=== PATIENT | female | born 1960 | race Caucasian/White ===

== ENCOUNTER → 2016-11-09 | Outpatient (CLI) | payer MEDICAID ==
[~2016-11-09] MED LIST: AMLO10TA2 PO; AMOX1TAB12 PO; ASPI-621 PO; ATOR40TA78 PO; ATOR80TA75 PO; BENA40TA2 PO; CEFD300C37 PO; DILT240C77 PO; DILT360C26 PO; Docusate Sodium PO; INSU100C SQ-INSULIN; INSU100I18 SQ-INSULIN; INSU100V8 SQ; LEVO75TA5 PO; METF500T4 PO; METO25TA9 PO; METR500T PO; NITR0.4T8 SL; POLY17PO5 PO; SERT50TA5 PO; TICA90TA PO
== END | disposition home or self-care (01) ==
LOC: GALN 11-03 15:32 → EDSTATUS 11-03 16:15 → CFH 16:18
PROVIDERS: ATTEND Internal Medicine Critical Care Medicine
DX: R91.8 Other nonspecific abnormal finding of lung field (principal)
CPT/HCPCS: 71250

== ENCOUNTER 2016-11-17 03:17 | Inpatient (IN) | payer MEDICAID ==
[~2016-11-17] VITALS: Ht 147.3 cm; Wt 52.9 kg
[2016-11-17 04:01] LABS: BLOOD UREA NITROGEN 38 mg/dL (7-18)
[2016-11-17 04:05] LABS: IS PT STATUS REG ER OR PRE ER? YES
[2016-11-17] MEDS ORDERED: ASPIRIN 81 MG TABLET CHEW PO ONE (04:30)
[2016-11-17] MEDS ORDERED: ASPIRIN 81 MG TABLET CHEW ONE (04:56)
[2016-11-17] MEDS ORDERED: ONDANSETRON 2MG/ML, 2ML IVPush PRN ×2 (05:00→06:00)
[2016-11-17] MEDS ORDERED: DEXTROSE 4 GM TAB.CHEW PO PRN (06:00)
[2016-11-17] MEDS ORDERED: NITROGLYCERIN 0.4 MG BOTTLE (25 TABS) SL PRN (06:00)
[2016-11-17] MEDS ORDERED: BISACODYL 10 MG SUPP PR PRN (06:00)
[2016-11-17] MEDS ORDERED: GLUCAGON 1 MG IM PRN (06:00)
[2016-11-17] MEDS ORDERED: POLYETHYLENE GLYCOL 17 GM PACKET PO PRN (06:00)
[2016-11-17] MEDS ORDERED: PROMETHAZINE 25 MG/ML, 1ML IM PRN (06:00)
[2016-11-17] MEDS ORDERED: DEXTROSE 50%, 50ML SYRINGE IVPush PRN (06:00)
[2016-11-17] MEDS ORDERED: DOCUSATE 100 MG CAPSULE PO PRN (06:00)
[2016-11-17] MEDS ORDERED: ACETAMINOPHEN 325 MG TABLET PO PRN (06:00)
[2016-11-17] MEDS ORDERED: HYDROcodone/APAP 5/325 TABLET PO PRN (06:00)
[2016-11-17] MEDS ORDERED: NITROGLYCERIN 0.4 MG/SPRAY SL PRN (06:00)
[2016-11-17 06:03] VITALS: BP 120/77
[2016-11-17] MEDS: LEVOTHYROXINE 75 MCG TABLET PO SCH (06:31)
[2016-11-17] MEDS: CEFTRIAXONE PMX 1GM/50ML 50 ML IV SCH (06:31)
[2016-11-17] MEDS: ENOXAPARIN 40 MG/0.4 ML SQ SCH (06:31)
[2016-11-17 07:36] VITALS: BP 142/90
[2016-11-17] MEDS ORDERED: GADOBUTROL 7.5 MMOL/7.5 ML PFS ONE (08:22)
[2016-11-17] MEDS: INSULIN ASPART 100 UNITS/ML, PEN SQ-INSULIN SCH ×4 (09:21→21:00)
[2016-11-17] MEDS: TICAGRELOR 90 MG TABLET PO SCH ×2 (09:22→21:51)
[2016-11-17] MEDS: LACTOBACILLUS CHEW TABLET PO SCH ×3 (09:22→21:51)
[2016-11-17] MEDS: ASPIRIN 81 MG TABLET EC PO SCH (09:22)
[2016-11-17] MEDS: SODIUM CHLORIDE FLUSH 10ML SYR IVF SCH ×2 (09:23→21:51)
[2016-11-17 12:24] LABS: IS PT STATUS REG ER OR PRE ER? NO
[2016-11-17 14:00] VITALS: BP 124/82
[2016-11-17 16:25] LABS: IS PT STATUS REG ER OR PRE ER? NO
[2016-11-17 19:12] LABS: IS PT STATUS REG ER OR PRE ER? NO
[2016-11-17 19:48] VITALS: BP 115/77
[2016-11-17] MEDS ORDERED: ATORVASTATIN 80 MG TABLET PO SCH (21:00)
[2016-11-18 02:07] VITALS: BP 126/83
[2016-11-18] MEDS: ENOXAPARIN 40 MG/0.4 ML SQ SCH (06:32)
[2016-11-18] MEDS: LEVOTHYROXINE 75 MCG TABLET PO SCH (06:32)
[2016-11-18] MEDS: CEFTRIAXONE PMX 1GM/50ML 50 ML IV SCH (06:33)
[2016-11-18 06:51] LABS: ASPARTATE AMINO TRANSFERASE 9 U/L (15-37); BLOOD UREA NITROGEN 33 mg/dL (7-18)
[2016-11-18] MEDS: INSULIN ASPART 100 UNITS/ML, PEN SQ-INSULIN SCH ×2 (07:00→12:07)
[2016-11-18 07:55] VITALS: BP 135/89
[2016-11-18] MEDS: SODIUM CHLORIDE FLUSH 10ML SYR IVF SCH (08:34)
[2016-11-18] MEDS: ASPIRIN 81 MG TABLET EC PO SCH (08:35)
[2016-11-18] MEDS: TICAGRELOR 90 MG TABLET PO SCH (08:35)
[2016-11-18] MEDS: LACTOBACILLUS CHEW TABLET PO SCH (08:35)
[2016-11-18] MEDS ORDERED: CEFD300C37 PO (12:05)
[2016-11-18] MEDS ORDERED: ACID1TAB7 PO (12:05)
[2016-11-18 14:54] VITALS: BP 125/85
[2016-11-18] MEDS ORDERED: INSULIN DETEMIR 100 UNITS/ML, PEN SQ-INSULIN SCH (21:00)
== END 2016-11-18 15:55 | disposition home health service (06) | DRG 281 ==
LOC: ED 03:37 → EDIP 04:42 → 5SO 05:44 → DCLOUNGE 11-18 14:58
PROVIDERS: ADMIT Internal Medicine; ATTEND Internal Medicine
DX: I21.4 Non-ST elevation (NSTEMI) myocardial infarction (principal); G45.9 Transient cerebral ischemic attack, unspecified; I13.0 Hypertensive heart and chronic kidney disease with heart failure and stage 1 through stage 4 chronic kidney disease, or unspecified chronic kidney disease; I50.22 Chronic systolic (congestive) heart failure; N39.0 Urinary tract infection, site not specified; I25.10 Atherosclerotic heart disease of native coronary artery without angina pectoris; I25.5 Ischemic cardiomyopathy; E11.9 Type 2 diabetes mellitus without complications; E11.22 Type 2 diabetes mellitus with diabetic chronic kidney disease; N18.3 Chronic kidney disease, stage 3 (moderate); D64.9 Anemia, unspecified; I34.0 Nonrheumatic mitral (valve) insufficiency; E11.65 Type 2 diabetes mellitus with hyperglycemia; E78.5 Hyperlipidemia, unspecified; E03.9 Hypothyroidism, unspecified; D63.8 Anemia in other chronic diseases classified elsewhere; Z95.5 Presence of coronary angioplasty implant and graft; I25.2 Old myocardial infarction; Z79.4 Long term (current) use of insulin; Z79.02 Long term (current) use of antithrombotics/antiplatelets; Z79.82 Long term (current) use of aspirin; Z79.899 Other long term (current) drug therapy
CPT/HCPCS: 36415; 70450; 70553; 71010; 80048; 80053; 81001; 82040; 82962; 83036; 83880; 84443; 84484; 85025; 85610; 87070; 87086; 87205; 93005; 93306; 93880; 99285; A9585; J0696; J1650; J1815; 92523-GN

== ENCOUNTER 2016-12-12 10:07 | Emergency (ER) | payer MEDICAID ==
[~2016-12-12] VITALS: Ht 162.6 cm; Wt 54.0 kg
[~2016-12-12 10:07] MED LIST changes: +ACID1TAB7 PO
[2016-12-12 10:12] VITALS: BP 165/96
[2016-12-12 11:19] LABS: BLOOD UREA NITROGEN 30 mg/dL (7-18)
[2016-12-12] MEDS ORDERED: OMNIPAQUE 350 MG/ML, 100ML BOTTLE ONE (12:35)
== END 2016-12-12 13:26 | disposition home or self-care (01) ==
LOC: ED 11:22
DX: R31.0 Gross hematuria (principal); E11.9 Type 2 diabetes mellitus without complications; I10 Essential (primary) hypertension; E03.9 Hypothyroidism, unspecified; E78.00 Pure hypercholesterolemia, unspecified; I25.2 Old myocardial infarction; Z86.73 Personal history of transient ischemic attack (TIA), and cerebral infarction without residual deficits
CPT/HCPCS: 36415; 74177; 80048; 81001; 82040; 85025; 85610; 85730; 99285; Q9967

== ENCOUNTER 2016-12-17 05:54 | Day surgery (SDC) | payer MEDICAID ==
[2016-12-17] MEDS ORDERED: NALOXONE 1 MG/ML, 2ML ONE (08:11)
[2016-12-17] MEDS ORDERED: FLUMAZENIL 0.1 MG/1 ML, 5ML ONE (08:11)
[2016-12-17] MEDS ORDERED: FENTANYL PF 100 MCG/2ML ONE (08:11)
[2016-12-17] MEDS ORDERED: MIDAZOLAM 1 MG/ML, 5ML ONE (08:11)
== END 2016-12-17 11:05 ==
LOC: OUT 05:54
PROVIDERS: ATTEND Internal Medicine Critical Care Medicine
DX: J18.8 Other pneumonia, unspecified organism (principal); F17.200 Nicotine dependence, unspecified, uncomplicated; E11.9 Type 2 diabetes mellitus without complications; I10 Essential (primary) hypertension
CPT/HCPCS: 32405; 71010; 77012; 82962; 88305; 88312; 99156; 99157; J2250; J3010; J2310

== ENCOUNTER 2016-12-17 11:24 | Emergency (ER) | payer MEDICAID ==
[~2016-12-17] VITALS: Ht 147.3 cm; Wt 52.0 kg
[2016-12-17 12:11] LABS: BLOOD UREA NITROGEN 28 mg/dL (7-18)
[2016-12-17 12:16] LABS: IS PT STATUS REG ER OR PRE ER? YES
[2016-12-17 12:42] VITALS: BP 126/78
== END 2016-12-17 13:58 | disposition home or self-care (01) ==
LOC: ED 12:30
DX: R09.02 Hypoxemia (principal)
CPT/HCPCS: 36415; 80048; 82040; 83880; 84484; 85025; 93005; 99285

== ENCOUNTER 2017-01-13 07:29 | Day surgery (SDC) | payer MEDICAID ==
[2017-01-12 09:24] LABS: HEMATOCRIT 32.6 % (34.6-47.8); HEMOGLOBIN 10.6 g/dL (11.7-16.4)
[~2017-01-13] VITALS: Ht 147.3 cm; Wt 55.0 kg
[~2017-01-13 07:29] MED LIST changes: +ATOR-2 PO; -ATOR80TA75 PO; +LIDOCAINE 4% TOPICAL SOLUTION 50 ML ONE; +LIDOCAINE GEL 2%, 5ML ONE; +METO25TA35 PO; +NITR0.4T28 SL; -NITR0.4T8 SL
[2017-01-13] MEDS ORDERED: LACTATED RINGERS 1,000 ML IV SCH (07:41)
[2017-01-13] MEDS ORDERED: SODIUM CHLORIDE 0.9% 1,000 ML IV SCH (07:42)
[2017-01-13 08:03] VITALS: BP 143/86
[2017-01-13] MEDS ORDERED: FENTANYL PF 100 MCG/2ML ONE (08:58)
[2017-01-13] MEDS ORDERED: MIDAZOLAM 1 MG/ML, 5ML ONE (08:58)
== END 2017-01-13 16:45 | disposition home or self-care (01) ==
LOC: OUT 07:29
PROVIDERS: ATTEND Internal Medicine Critical Care Medicine
DX: J40 Bronchitis, not specified as acute or chronic (principal); E11.9 Type 2 diabetes mellitus without complications; I10 Essential (primary) hypertension; E03.9 Hypothyroidism, unspecified; E78.5 Hyperlipidemia, unspecified; F41.9 Anxiety disorder, unspecified; Z79.4 Long term (current) use of insulin; Z79.82 Long term (current) use of aspirin
CPT/HCPCS: 31624; 31625; 36415; 71010; 85025; 85610; 85730; 87015; 87070; 87102; 87107; 87116; 87205; 87206; 88112; 88305; 88312; 99152; 99153; J2250; J3010; J7030

== ENCOUNTER → 2017-11-07 | Outpatient (CLI) | payer OTHER ==
[~2017-11-07] MED LIST changes: +CARV12.543 PO; +CLOP75TA PO; +DOCU-131 PO; +FLUC200T4 PO; +FURO20TA3 PO; +HYDR-3240 PO; -LIDOCAINE 4% TOPICAL SOLUTION 50 ML ONE; -LIDOCAINE GEL 2%, 5ML ONE; +LOSA100T6 PO; -METF500T4 PO; +METF500T5 PO; +METO-282 PO; -METO25TA9 PO; +POTA10TA5 PO
== END | disposition home or self-care (01) ==
LOC: CFH 13:21
PROVIDERS: ATTEND Internal Medicine Cardiovascular Disease
DX: I34.0 Nonrheumatic mitral (valve) insufficiency (principal); I12.9 Hypertensive chronic kidney disease with stage 1 through stage 4 chronic kidney disease, or unspecified chronic kidney disease; E11.22 Type 2 diabetes mellitus with diabetic chronic kidney disease; N18.3 Chronic kidney disease, stage 3 (moderate); E78.5 Hyperlipidemia, unspecified; I25.5 Ischemic cardiomyopathy; Z86.73 Personal history of transient ischemic attack (TIA), and cerebral infarction without residual deficits; Z95.1 Presence of aortocoronary bypass graft
CPT/HCPCS: 0399T; 93306

== ENCOUNTER → 2018-05-17 | Outpatient (CLI) | payer OTHER ==
[~2018-05-17] MED LIST changes: -AMLO10TA2 PO; +AMLO10TA6 PO; -ASPI-621 PO; +ASPI81TA45 PO; -BENA40TA2 PO; +BENA40TA3 PO; -LOSA100T6 PO; +LOSA100T7 PO; +METF500T17 PO; -METF500T5 PO
[2018-05-17 09:48] LABS: ALANINE AMINOTRANSFERASE 60 U/L (12-78); ANION GAP 11 mmol/L (5-15); CHLORIDE 117 mmol/L (98-107); CHOLESTEROL, TOTAL 210 mg/dL (140-239); CREATININE 2.31 mg/dL (0.55-1.02)
[2018-05-17 09:50] LABS: ALKALINE PHOSPHATASE 201 U/L (45-117); BILIRUBIN,TOTAL 0.6 mg/dL (0.2-1.0); CHOL/HDL RATIO 3.6; HDL CHOL % 28 % (28-40); HDL CHOLESTEROL (DIRECT) 59 mg/dL (40-60); LDL CHOLESTEROL,CALCULATED 115 mg/dL (54-169); LDL/HDL RATIO 1.9 (0.5-3.0); TOTAL PROTEIN 8.2 g/dL (6.4-8.2); TRIGLYCERIDES 182 mg/dL (50-200); VLDL CHOLESTEROL 36 mg/dL (0-25)
== END | disposition home or self-care (01) ==
LOC: LAB 09:21
PROVIDERS: ATTEND Internal Medicine Cardiovascular Disease
DX: I10 Essential (primary) hypertension (principal); E78.2 Mixed hyperlipidemia
CPT/HCPCS: 36415; 80053; 80061

== ENCOUNTER 2018-05-30 04:54 | Inpatient (IN) | payer OTHER ==
[~2018-05-30] VITALS: Ht 149.9 cm; Wt 53.4 kg
[~2018-05-30 04:54] MED LIST changes: -AMLO10TA6 PO; +AMLO10TA8 PO; +LOSA100T14 PO; -LOSA100T7 PO; +SERT50TA28 PO; -SERT50TA5 PO
--- NOTE | 2018-05-30 05:13 | NUR ---
EKG COMPLETED IN TRIAGE AND PRESENTED TO ERMD. PT. AMBULATORY TO ROOM WITH STEADY GAIT ACCOMPANIED BY FAMILY.
[2018-05-30] MEDS ORDERED: METOCLOPRAMIDE 5 MG/ML, 2ML IVPush ONE (05:30)
[2018-05-30] MEDS ORDERED: KETOROLAC 30 MG/1 ML IVPush ONE (05:30)
[2018-05-30] MEDS ORDERED: SODIUM CHLORIDE FLUSH 10ML SYR IVF ONE (05:30)
[2018-05-30] MEDS ORDERED: DIPHENHYDRAMINE 50 MG/ML, 1ML IVPush ONE (05:30)
--- NOTE | 2018-05-30 05:37 | NUR ---
PT. PLACED ON ALL MONITORS AT THIS TIME. RA SAT 85% DESPITE DEEP BREATHING. PT DENIES CP OR SOB. 2L O2 VIA NC PLACED; INCREASE TO 94% AFTER ABOUT 35 SECONDS. ONLY COMPLAINT IS FOX AND RIGHT NECK PAIN. PT. C/O NAUSEA BUT DENIES VOMITNG. DENIES ABD PAIN OR DYSURIA. DR. YOUSSEF WAS IN TO EVAL PT. AND DISCUSS POC. IV STARTED AND BLOOD DRAWN.
[2018-05-30] MEDS ORDERED: KETOROLAC 30 MG/1 ML ONE (05:48)
[2018-05-30] MEDS ORDERED: METOCLOPRAMIDE 5 MG/ML, 2ML ONE (05:48)
[2018-05-30] MEDS ORDERED: DIPHENHYDRAMINE 50 MG/ML, 1ML ONE (05:48)
[2018-05-30 05:49] LABS: BASOPHILS # (AUTO) 0.04 x10^3/uL (0-0.1); BASOPHILS % (AUTO) 0 % (0-1); EOSINOPHILS # (AUTO) 0.32 x10^3/uL (0-0.4); EOSINOPHILS % (AUTO) 3 % (1-7); LYMPHOCYTES # (AUTO) 1.32 x10^3/uL (1-3.4); LYMPHOCYTES % (AUTO) 14 % (22-44); MD NO; MEAN CORPUSCULAR HEMOGLOBIN 31.7 pg (27.0-34.8); MEAN CORPUSCULAR HGB CONC 33.9 g/dL (32.4-35.8); MEAN CORPUSCULAR VOLUME 93.4 fL (80-100); MEAN PLATELET VOLUME 9.5 fL (7.4-10.4); MONOCYTES # (AUTO) 1.08 x10^3/uL (0.2-0.8); MONOCYTES % (AUTO) 11 % (2-9); NEUTROPHILS % (AUTO) 72 % (42-75); PLATELET COUNT 169 x10^3/uL (130-400); RED BLOOD COUNT 3.28 x10^6/uL (3.82-5.3); RED CELL DISTRIBUTION WIDTH 14.8 % (9.6-15.2)
--- NOTE | 2018-05-30 05:50 | NUR ---
UPDATED DR. YOUSSEF ON PT. NEED FOR O2; NEW ORDERS.
--- NOTE | 2018-05-30 05:59 | NUR ---
HOLDING TORODOL UNTIL HEAD CT RESULTED. PT. MEDICATED PER JUL. ALL MONITORS IN PLACE. FAMILY AT FOR SUPPORT. CALL LIGHT IN REACH.
[2018-05-30 06:03] LABS: ALANINE AMINOTRANSFERASE 47 U/L (12-78); ALBUMIN 3.4 g/dL (3.4-5.0); ANION GAP 7 mmol/L (5-15); CALCIUM 9.1 mg/dL (8.5-10.1); CHLORIDE 116 mmol/L (98-107); CREATININE 2.47 mg/dL (0.55-1.02)
[2018-05-30 06:05] LABS: ALKALINE PHOSPHATASE 169 U/L (45-117); BILIRUBIN,TOTAL 0.7 mg/dL (0.2-1.0); TOTAL PROTEIN 7.7 g/dL (6.4-8.2)
--- NOTE | 2018-05-30 06:05 | NUR ---
PT. TO CT VIA [facility] AT THIS TIME.
--- NOTE | 2018-05-30 06:46 | NUR ---
PT. MEDICATED PER MAR; CT RESULTS BACK. PT. DENIES OTHER NEEDS AT THIS TIME. FAMILY REMAINS AT BS FOR SUPPORT. CALL LIGHT IN REACH.
--- NOTE | 2018-05-30 07:11 | NUR ---
RECEIVED REPORT. VSS. FAMILY AT BEDSIDE. WAITING FOR LAB RESULTS. PT STATES HER FOX IS BETTER.
[2018-05-30] MEDS ORDERED: BENA20TA4 PO (07:15)
[2018-05-30] MEDS ORDERED: INSU100V8 SQ (07:16)
[2018-05-30] MEDS ORDERED: INSULIN LISPRO (07:17)
[2018-05-30 07:33] LABS: TROPONIN I < 0.015 ng/mL (0.000-0.045)
--- NOTE | 2018-05-30 08:14 | NUR ---
PT IS RESTING ON GURNEY. ALL MONITORS ON WITH AUDIBLE ALARMS. NO ECTOPY NOTED. FAMILY IS AT BEDSIDE. VSS. DR. YOUSSEF SPOKE WITH PT AND FAMILY ABOUT ADMISSION TO HOSPITAL. CALL LIGHT IS WITHIN REACH.
[2018-05-30] MEDS ORDERED: CALCIUM CHLORIDE 10%, 10ML SYR ONE (08:24)
[2018-05-30] MEDS ORDERED: SODIUM BICARBONATE 1 MEQ/ML, 50ML VIAL ONE (08:24)
[2018-05-30] MEDS ORDERED: DEXTROSE 50%, 50ML SYRINGE ONE (08:24)
[2018-05-30] MEDS ORDERED: FUROSEMIDE 40 MG/4 ML ONE (08:25)
[2018-05-30] MEDS ORDERED: INSULIN REGULAR 100 UNITS/ML, 3ML VIAL ONE (08:25)
[2018-05-30] MEDS ORDERED: SODIUM BICARB 8.4%, 50ML SYRINGE IVPush ONE (08:30)
[2018-05-30] MEDS ORDERED: FUROSEMIDE 40 MG/4 ML IVPush ONE (08:30)
[2018-05-30] MEDS ORDERED: CALCIUM CHLORIDE 10%, 10ML SYR IVPush ONE (08:30)
[2018-05-30] MEDS ORDERED: SODIUM CHLORIDE FLUSH 10ML SYR IVF PRN (08:30)
[2018-05-30] MEDS ORDERED: DEXTROSE 50%, 50ML SYRINGE IVPush ONE (08:30)
[2018-05-30] MEDS ORDERED: INSULIN REGULAR 100 UNITS/ML, 3ML VIAL IVPush ONE (08:30)
[2018-05-30] MEDS ORDERED: DOXYCYCLINE 100MG TABLET ONE (08:31)
[2018-05-30] MEDS ORDERED: CIPROFLOXACIN 500 MG TABLET ONE (08:31)
[2018-05-30] MEDS ORDERED: SODIUM CHLORIDE 0.9% 1,000 ML IV SCH (08:45)
[2018-05-30] MEDS ORDERED: ONDANSETRON 2MG/ML, 2ML IVPush PRN (09:00)
[2018-05-30] MEDS ORDERED: hydrALAzine 20 MG/ML, 1ML IVPush PRN (09:00)
[2018-05-30] MEDS ORDERED: BISACODYL 10 MG SUPP PR PRN (09:00)
[2018-05-30] MEDS ORDERED: ASA/APAP/ CAFFEINE TABLET PO PRN (09:00)
[2018-05-30] MEDS ORDERED: DOCUSATE 100 MG CAPSULE PO PRN (09:00)
[2018-05-30] MEDS ORDERED: INSULIN LISPRO 100 UNITS/ML, PEN SQ-INSULIN SCH (09:00)
[2018-05-30] MEDS ORDERED: ONDANSETRON ODT 4 MG PO PRN (09:00)
[2018-05-30 09:02] LABS: % IRON SATURATION 17 % (20-55); IRON LEVEL 31 mcg/dL (50-170); TOTAL IRON BINDING CAPACITY 180 mcg/dL (250-450)
--- NOTE | 2018-05-30 10:33 | NUR ---
WAITING FOR ROOM ASSIGNMENT. FAMILY AT [facility]. CALL LIGHT IS WITHIN REACH.
[2018-05-30] MEDS: INSULIN LISPRO 100 UNITS/ML, PEN SQ-INSULIN SCH ×3 (11:00→20:05)
[2018-05-30] MEDS ORDERED: HEPARIN 5,000 UNITS/ML, 1ML ONE (12:40)
[2018-05-30] MEDS ORDERED: SENNA/DOCUSATE TABLET ONE (12:40)
[2018-05-30] MEDS ORDERED: ASPIRIN 81 MG TABLET EC ONE (12:40)
[2018-05-30] MEDS: SENNA/DOCUSATE TABLET PO SCH (12:45)
[2018-05-30] MEDS: HEPARIN 5,000 UNITS/ML, 1ML SQ SCH ×2 (12:45→20:05)
[2018-05-30] MEDS: ASPIRIN 81 MG TABLET EC PO SCH (12:45)
[2018-05-30] MEDS: IRON SUCROSE COMPLEX 100MG/5ML IV SCH (13:24)
[2018-05-30 13:29] LABS: HEMOGLOBIN A1C 6.5 % (4.2-6.3)
[2018-05-30] MEDS ORDERED: hydrALAzine 20 MG/ML, 1ML ONE (13:32)
[2018-05-30 13:45] VITALS: BP 163/81
[2018-05-30] MEDS: LEVOTHYROXINE 75 MCG TABLET PO SCH (14:58)
[2018-05-30 17:19] LABS: CULTURE INDICATED? YES; MICROSCOPIC AUTO
[2018-05-30 17:45] VITALS: BP 161/89
[2018-05-30] MEDS: CARVEDILOL 12.5 MG TABLET PO SCH (17:46)
[2018-05-30 19:36] VITALS: BP 136/80
[2018-05-30] MEDS: ATORVASTATIN 40 MG TABLET PO SCH (20:05)
[2018-05-30] MEDS: INSULIN GLARGINE 100 UNITS/ML, PEN SQ-INSULIN SCH (21:58)
[2018-05-31 03:10] VITALS: BP 147/75
[2018-05-31] MEDS: HEPARIN 5,000 UNITS/ML, 1ML SQ SCH ×3 (05:32→20:48)
[2018-05-31] MEDS: CARVEDILOL 12.5 MG TABLET PO SCH ×2 (05:33→17:11)
[2018-05-31] MEDS: LEVOTHYROXINE 75 MCG TABLET PO SCH (05:33)
[2018-05-31 06:06] LABS: BASOPHILS # (AUTO) 0.02 x10^3/uL (0-0.1); BASOPHILS % (AUTO) 0 % (0-1); EOSINOPHILS # (AUTO) 0.21 x10^3/uL (0-0.4); EOSINOPHILS % (AUTO) 2 % (1-7); LYMPHOCYTES # (AUTO) 1.04 x10^3/uL (1-3.4); LYMPHOCYTES % (AUTO) 9 % (22-44); MD NO; MEAN CORPUSCULAR HEMOGLOBIN 31.5 pg (27.0-34.8); MEAN CORPUSCULAR HGB CONC 33.7 g/dL (32.4-35.8); MEAN CORPUSCULAR VOLUME 93.3 fL (80-100); MEAN PLATELET VOLUME 10.2 fL (7.4-10.4); MONOCYTES # (AUTO) 0.93 x10^3/uL (0.2-0.8); MONOCYTES % (AUTO) 8 % (2-9); NEUTROPHILS % (AUTO) 80 % (42-75); PLATELET COUNT 185 x10^3/uL (130-400); RED BLOOD COUNT 2.98 x10^6/uL (3.82-5.3); RED CELL DISTRIBUTION WIDTH 14.9 % (9.6-15.2)
[2018-05-31 06:16] LABS: ANION GAP 6 mmol/L (5-15); CALCIUM 8.8 mg/dL (8.5-10.1); CHLORIDE 116 mmol/L (98-107); CREATININE 2.67 mg/dL (0.55-1.02)
[2018-05-31] MEDS: INSULIN LISPRO 100 UNITS/ML, PEN SQ-INSULIN SCH ×4 (07:00→20:48)
[2018-05-31 07:48] VITALS: BP 124/74
[2018-05-31] MEDS: IRON SUCROSE COMPLEX 100MG/5ML IV SCH (09:46)
[2018-05-31] MEDS: ASPIRIN 81 MG TABLET EC PO SCH (09:46)
[2018-05-31] MEDS: SENNA/DOCUSATE TABLET PO SCH (09:48)
[2018-05-31] MEDS ORDERED: INSULIN REGULAR 100 UNITS/ML, 3ML VIAL IVPush ONE (12:30)
[2018-05-31] MEDS ORDERED: DEXTROSE 50%, 50ML SYRINGE IVPush ONE (13:00)
[2018-05-31 15:11] VITALS: BP 150/82
[2018-05-31] MEDS ORDERED: AZITHROMYCIN 500 MG in SODIUM CHLORIDE 0.9% 250 ML IV SCH (17:00)
[2018-05-31] MEDS: CEFTRIAXONE PMX 1GM/50ML 50 ML IV SCH (17:02)
[2018-05-31] MEDS: ACETAMINOPHEN 325 MG TABLET PO PRN (18:59)
[2018-05-31] MEDS: SODIUM BICARBONATE 650 MG TABLET PO SCH (20:47)
[2018-05-31] MEDS: ATORVASTATIN 40 MG TABLET PO SCH (20:47)
[2018-05-31] MEDS: INSULIN GLARGINE 100 UNITS/ML, PEN SQ-INSULIN SCH (20:48)
[2018-05-31 20:59] VITALS: BP 127/72
[2018-06-01 00:48] VITALS: BP 120/70
[2018-06-01 05:16] LABS: BASOPHILS # (AUTO) 0.04 x10^3/uL (0-0.1); BASOPHILS % (AUTO) 1 % (0-1); EOSINOPHILS # (AUTO) 0.36 x10^3/uL (0-0.4); EOSINOPHILS % (AUTO) 4 % (1-7); LYMPHOCYTES # (AUTO) 1.66 x10^3/uL (1-3.4); LYMPHOCYTES % (AUTO) 18 % (22-44); MD NO; MEAN CORPUSCULAR HEMOGLOBIN 31.6 pg (27.0-34.8); MEAN CORPUSCULAR HGB CONC 33.6 g/dL (32.4-35.8); MEAN CORPUSCULAR VOLUME 94.3 fL (80-100); MEAN PLATELET VOLUME 9.7 fL (7.4-10.4); MONOCYTES # (AUTO) 0.92 x10^3/uL (0.2-0.8); MONOCYTES % (AUTO) 10 % (2-9); NEUTROPHILS # (AUTO) 6.52 x10^3/uL (1.8-6.8); NEUTROPHILS % (AUTO) 69 % (42-75); PLATELET COUNT 198 x10^3/uL (130-400); RED CELL DISTRIBUTION WIDTH 14.7 % (9.6-15.2)
[2018-06-01 05:24] LABS: CHLORIDE 117 mmol/L (98-107)
[2018-06-01 05:28] LABS: ANION GAP 6 mmol/L (5-15); CALCIUM 8.4 mg/dL (8.5-10.1)
[2018-06-01] MEDS: CARVEDILOL 12.5 MG TABLET PO SCH ×2 (05:33→17:27)
[2018-06-01] MEDS: HEPARIN 5,000 UNITS/ML, 1ML SQ SCH ×3 (05:33→20:26)
[2018-06-01] MEDS: LEVOTHYROXINE 75 MCG TABLET PO SCH (05:33)
[2018-06-01 06:40] VITALS: BP 154/82
[2018-06-01] MEDS: INSULIN LISPRO 100 UNITS/ML, PEN SQ-INSULIN SCH ×4 (07:47→20:30)
[2018-06-01] MEDS ORDERED: AMLODIPINE 2.5 MG TABLET PO SCH (09:00)
[2018-06-01] MEDS: SENNA/DOCUSATE TABLET PO SCH (09:07)
[2018-06-01] MEDS: SODIUM BICARBONATE 650 MG TABLET PO SCH ×2 (09:13→20:26)
[2018-06-01] MEDS: ASPIRIN 81 MG TABLET EC PO SCH (09:13)
[2018-06-01] MEDS: IRON SUCROSE COMPLEX 100MG/5ML IV SCH (09:13)
[2018-06-01 13:05] VITALS: BP 150/81
[2018-06-01] MEDS: CEFTRIAXONE PMX 1GM/50ML 50 ML IV SCH (17:26)
[2018-06-01] MEDS: ATORVASTATIN 40 MG TABLET PO SCH (20:26)
[2018-06-01] MEDS: INSULIN GLARGINE 100 UNITS/ML, PEN SQ-INSULIN SCH (20:30)
[2018-06-01 21:20] VITALS: BP 135/77
[2018-06-02] VITALS (7 sets, daily range): BP systolic 125–170; BP diastolic 67–94
[2018-06-02] MEDS ORDERED: DEXTROSE 50%, 50ML SYRINGE IVPush ONE (01:30)
[2018-06-02] MEDS: CARVEDILOL 12.5 MG TABLET PO SCH ×2 (05:52→18:00)
[2018-06-02] MEDS: HEPARIN 5,000 UNITS/ML, 1ML SQ SCH ×3 (05:52→21:08)
[2018-06-02] MEDS: LEVOTHYROXINE 75 MCG TABLET PO SCH (05:53)
[2018-06-02] MEDS: INSULIN LISPRO 100 UNITS/ML, PEN SQ-INSULIN SCH ×4 (07:45→21:09)
[2018-06-02 07:58] LABS: ANION GAP 6 mmol/L (5-15); CALCIUM 8.5 mg/dL (8.5-10.1); CHLORIDE 116 mmol/L (98-107); CREATININE 2.75 mg/dL (0.55-1.02)
[2018-06-02] MEDS: SODIUM BICARBONATE 650 MG TABLET PO SCH ×2 (09:23→21:08)
[2018-06-02] MEDS: SENNA/DOCUSATE TABLET PO SCH (09:23)
[2018-06-02] MEDS: ASPIRIN 81 MG TABLET EC PO SCH (09:23)
[2018-06-02] MEDS: AMLODIPINE 5 MG TABLET PO SCH (09:25)
[2018-06-02] MEDS: IRON SUCROSE COMPLEX 100MG/5ML IV SCH (09:25)
[2018-06-02] MEDS ORDERED: FUROSEMIDE 40 MG/4 ML IV ONE (11:00)
[2018-06-02] MEDS: CEFTRIAXONE PMX 1GM/50ML 50 ML IV SCH (17:59)
[2018-06-02 18:12] LABS: ANA SCREEN POSITIVE (Negative)
[2018-06-02 18:13] LABS: ANTI-NUCLEAR ANTIBODY PATTERN HOMOGENOUS
[2018-06-02] MEDS ORDERED: INSULIN GLARGINE 100 UNITS/ML, PEN SQ-INSULIN SCH (21:00)
[2018-06-02] MEDS: ATORVASTATIN 40 MG TABLET PO SCH (21:07)
[2018-06-03 00:53] VITALS: BP 129/82
[2018-06-03] MEDS: ACETAMINOPHEN 325 MG TABLET PO PRN (02:15)
[2018-06-03 05:11] LABS: ANION GAP 8 mmol/L (5-15); CALCIUM 8.9 mg/dL (8.5-10.1); CHLORIDE 113 mmol/L (98-107)
[2018-06-03 05:12] LABS: CREATININE 2.67 mg/dL (0.55-1.02)
[2018-06-03 05:45] VITALS: BP 146/83
[2018-06-03] MEDS: LEVOTHYROXINE 75 MCG TABLET PO SCH (05:46)
[2018-06-03] MEDS: CARVEDILOL 12.5 MG TABLET PO SCH (05:46)
[2018-06-03] MEDS: HEPARIN 5,000 UNITS/ML, 1ML SQ SCH ×2 (05:46→13:00)
[2018-06-03] MEDS: INSULIN LISPRO 100 UNITS/ML, PEN SQ-INSULIN SCH ×2 (07:00→11:00)
[2018-06-03 07:45] VITALS: BP 130/79
[2018-06-03] MEDS ORDERED: INSU100V8 SQ (08:17)
[2018-06-03] MEDS ORDERED: AMLO-150 PO (08:17)
[2018-06-03] MEDS ORDERED: FERR324T5 PO (08:17)
[2018-06-03] MEDS ORDERED: CEPH-368 PO (08:19)
[2018-06-03] MEDS: IRON SUCROSE COMPLEX 100MG/5ML IV SCH (08:26)
[2018-06-03] MEDS: SODIUM BICARBONATE 650 MG TABLET PO SCH (08:26)
[2018-06-03] MEDS: ASPIRIN 81 MG TABLET EC PO SCH (08:27)
[2018-06-03] MEDS: AMLODIPINE 5 MG TABLET PO SCH (08:27)
[2018-06-03] MEDS: SENNA/DOCUSATE TABLET PO SCH (08:27)
[2018-06-03 12:55] VITALS: BP 136/81
[2018-06-03] MEDS: CEFTRIAXONE PMX 1GM/50ML 50 ML IV SCH (15:33)
[2018-06-03] MEDS ORDERED: INSULIN GLARGINE 100 UNITS/ML, PEN SQ-INSULIN SCH (21:00)
== END 2018-06-03 17:48 | disposition home or self-care (01) | DRG 682 ==
LOC: ED 06:19 → EDIP 08:20 → 5SO 13:47 → 4WST 06-02 11:31
PROVIDERS: ADMIT Hospitalist; ATTEND Hospitalist
DX: N17.0 Acute kidney failure with tubular necrosis (principal); J96.01 Acute respiratory failure with hypoxia; E87.2 Acidosis; I13.0 Hypertensive heart and chronic kidney disease with heart failure and stage 1 through stage 4 chronic kidney disease, or unspecified chronic kidney disease; I50.42 Chronic combined systolic (congestive) and diastolic (congestive) heart failure; N39.0 Urinary tract infection, site not specified; D50.9 Iron deficiency anemia, unspecified; E03.9 Hypothyroidism, unspecified; E11.22 Type 2 diabetes mellitus with diabetic chronic kidney disease; E78.5 Hyperlipidemia, unspecified; E87.5 Hyperkalemia; G44.219 Episodic tension-type headache, not intractable; I25.10 Atherosclerotic heart disease of native coronary artery without angina pectoris; I25.5 Ischemic cardiomyopathy; N18.9 Chronic kidney disease, unspecified; Q63.2 Ectopic kidney; Z79.4 Long term (current) use of insulin; I25.2 Old myocardial infarction; Z82.49 Family history of ischemic heart disease and other diseases of the circulatory system; Z83.3 Family history of diabetes mellitus; Z86.73 Personal history of transient ischemic attack (TIA), and cerebral infarction without residual deficits; Z95.1 Presence of aortocoronary bypass graft
CPT/HCPCS: 36415; 70450; 71046; 76770; 80048; 80053; 81001; 82570; 82947; 82962; 83036; 83540; 83550; 83735; 83880; 84100; 84132; 84155; 84156; 84165; 84166; 84300; 84439; 84443; 84484; 85025; 86038; 86039; 86160; 86162; 87077; 87086; 87186; 93005; 96374; 96375; 99285; G0378; J0456; J0696; J1644; J1756; J1885; J1940; J2405; J1200; J1815; J2765; J7030; J7050

== ENCOUNTER → 2018-06-15 | Outpatient (CLI) | payer OTHER ==
[~2018-06-15] MED LIST changes: +AMLO-150 PO; +BENA20TA54 PO; +CEPH-368 PO; +FERR324T5 PO; +INSULIN LISPRO
[2018-06-15 10:48] LABS: ALANINE AMINOTRANSFERASE 41 U/L (12-78); ALBUMIN 3.5 g/dL (3.4-5.0); BASOPHILS # (AUTO) 0.04 x10^3/uL (0-0.1); BASOPHILS % (AUTO) 1 % (0-1); CALCIUM 9.2 mg/dL (8.5-10.1); CHLORIDE 116 mmol/L (98-107); CREATININE 2.82 mg/dL (0.55-1.02); EOSINOPHILS # (AUTO) 0.35 x10^3/uL (0-0.4); EOSINOPHILS % (AUTO) 5 % (1-7); LYMPHOCYTES # (AUTO) 1.56 x10^3/uL (1-3.4); LYMPHOCYTES % (AUTO) 20 % (22-44); MD NO; MEAN CORPUSCULAR HEMOGLOBIN 30.9 pg (27.0-34.8); MEAN CORPUSCULAR HGB CONC 32.2 g/dL (32.4-35.8); MEAN PLATELET VOLUME 8.3 fL (7.4-10.4); MONOCYTES # (AUTO) 0.64 x10^3/uL (0.2-0.8); MONOCYTES % (AUTO) 8 % (2-9); NEUTROPHILS # (AUTO) 5.11 x10^3/uL (1.8-6.8); NEUTROPHILS % (AUTO) 66 % (42-75); PLATELET COUNT 232 x10^3/uL (130-400); RED BLOOD COUNT 3.17 x10^6/uL (3.82-5.3); RED CELL DISTRIBUTION WIDTH 15.9 % (9.6-15.2)
[2018-06-15 10:50] LABS: ALKALINE PHOSPHATASE 145 U/L (45-117); BILIRUBIN,TOTAL 0.4 mg/dL (0.2-1.0); TOTAL PROTEIN 7.8 g/dL (6.4-8.2)
[2018-06-15 10:54] LABS: ANION GAP 7 mmol/L (5-15)
[2018-06-15 11:16] LABS: CREATININE,URINE RANDOM 72.4 mg/dL
== END | disposition home or self-care (01) ==
LOC: LAB 10:18
PROVIDERS: ATTEND Internal Medicine Nephrology
DX: R94.4 Abnormal results of kidney function studies (principal)
CPT/HCPCS: 36415; 80053; 82570; 83735; 84156; 85025

== ENCOUNTER 2020-10-27 09:15 | Observation (INO) | payer OTHER ==
[~2020-10-27] VITALS: Ht 147.3 cm; Wt 50.4 kg
[~2020-10-27 09:15] MED LIST changes: +AMLO-211 PO; -AMLO10TA8 PO; +HYDR-2214 PO; -HYDR-3240 PO
--- NOTE | 2020-10-27 09:54 | NUR ---
PT IN [facility] IN [facility]. PT PLACED ON VITALS MONITORS AND CARDIAC MONITORS. PT BP ELEVATED, ERP AWARE. PT SON HERE TO TRANSLATE FOR PT. WILL CONTINUE TO MONITOR.
[2020-10-27 10:27] LABS: BASOPHILS % (AUTO) 1 % (0-1); EOSINOPHILS % (AUTO) 5 % (1-7); LYMPHOCYTES % (AUTO) 16 % (22-44); MEAN CORPUSCULAR HEMOGLOBIN 30.9 pg (27.0-34.8); MEAN CORPUSCULAR HGB CONC 33.2 g/dL (32.4-35.8); MEAN PLATELET VOLUME 8.1 fL (7.4-10.4); MONOCYTES % (AUTO) 7 % (2-9); NEUTROPHILS % (AUTO) 71 % (42-75); PLATELET COUNT 183 x10^3/uL (130-400); RED CELL DISTRIBUTION WIDTH 15.6 % (9.6-15.2)
[2020-10-27 10:31] LABS: ALBUMIN 3.5 g/dL (3.4-5.0); ANION GAP 10 mmol/L (5-15); CALCIUM 12.3 mg/dL (8.5-10.1); CHLORIDE 97 mmol/L (98-107); CREATININE 7.18 mg/dL (0.55-1.02)
--- NOTE | 2020-10-27 10:58 | NUR ---
ALL RESULTS BACK, PT UP FOR RECHECK
[2020-10-27 11:22] LABS: TROPONIN I 0.017 ng/mL (0.000-0.045)
[2020-10-27] MEDS ORDERED: LABETALOL 5MG/ML, 20ML IVPush ONE (12:00)
[2020-10-27] MEDS ORDERED: ONDANSETRON 2MG/ML, 2ML IVPush ONE (12:00)
[2020-10-27] MEDS ORDERED: MORPHINE SULFATE 4 MG/ML, 1ML IVPush PRN (12:00)
[2020-10-27] MEDS ORDERED: ONDANSETRON 2MG/ML, 2ML ONE (12:09)
[2020-10-27] MEDS ORDERED: LABETALOL 5MG/ML, 20ML ONE (12:09)
[2020-10-27] MEDS ORDERED: MORPHINE SULFATE 4 MG/ML, 1ML ONE (12:09)
[2020-10-27] MEDS ORDERED: hydrALAzine 20 MG/ML, 1ML IVPush PRN (12:30)
[2020-10-27] MEDS ORDERED: ACETAMINOPHEN 325 MG TABLET PO PRN (12:30)
[2020-10-27] MEDS ORDERED: morphine SULFATE 10 MG/ML, 1ML IVPush PRN (12:30)
[2020-10-27] MEDS ORDERED: AMLODIPINE 5 MG TABLET PO SCH (12:30)
[2020-10-27] MEDS ORDERED: LABETALOL 5MG/ML, 20ML IVPush PRN (12:30)
--- NOTE | 2020-10-27 12:45 | NUR ---
GAVE REPORT TO JACI TO ROOM [id number]
[2020-10-27] MEDS ORDERED: FURO20TA3 PO (12:52)
[2020-10-27] MEDS ORDERED: ONDA4TAB7 PO (12:52)
[2020-10-27] MEDS ORDERED: LISI5TAB7 PO (12:52)
[2020-10-27] MEDS ORDERED: CARV6.2512 PO (12:52)
[2020-10-27] MEDS ORDERED: INSU100V8 SQ (12:52)
[2020-10-27] MEDS ORDERED: INSU100C SQ-INSULIN (12:52)
[2020-10-27] MEDS ORDERED: SERT50TA28 PO (12:52)
[2020-10-27 13:01] LABS: ABSOLUTE RETICS # 0.069 x10^6/uL (0.5-2.5); RED BLOOD COUNT 4.11 x10^6/uL (3.82-5.3); RETICULOCYTE COUNT % 1.68 % (0.5-1.5)
[2020-10-27 13:05] VITALS: BP 207/94
[2020-10-27 13:08] LABS: CALCIUM 12.1 mg/dL (8.5-10.1)
[2020-10-27] MEDS: AMLODIPINE 10 MG TAB PO SCH (13:33)
[2020-10-27] MEDS ORDERED: INSULIN LISPRO 100 UNITS/ML, PEN SQ-INSULIN SCH (16:00)
[2020-10-27 16:35] VITALS: BP 176/76
[2020-10-27 17:18] LABS: TROPONIN I 0.017 ng/mL (0.000-0.045)
[2020-10-27] MEDS: INSULIN LISPRO 100 UNITS/ML, PEN SQ-INSULIN SCH (19:00)
[2020-10-27 20:09] VITALS: BP 156/80
[2020-10-27] MEDS ORDERED: INSULIN GLARGINE 100 UNITS/ML, PEN SQ-INSULIN SCH (21:00)
[2020-10-27] MEDS ORDERED: MELATONIN 5 MG TABLET PO PRN (21:00)
[2020-10-27] MEDS ORDERED: ATORVASTATIN 40 MG TABLET PO SCH (21:00)
[2020-10-27 21:08] VITALS: BP 167/84
[2020-10-27] MEDS: LISINOPRIL 20 MG TABLET PO SCH (21:24)
[2020-10-27] MEDS: CARVEDILOL 12.5 MG TABLET PO SCH (21:24)
[2020-10-28 03:21] VITALS: BP 148/79
[2020-10-28 05:29] LABS: BASOPHILS % (AUTO) 0 % (0-1); EOSINOPHILS % (AUTO) 3 % (1-7); LYMPHOCYTES % (AUTO) 7 % (22-44); MEAN CORPUSCULAR HEMOGLOBIN 30.7 pg (27.0-34.8); MEAN CORPUSCULAR HGB CONC 33.2 g/dL (32.4-35.8); MEAN PLATELET VOLUME 7.8 fL (7.4-10.4); MONOCYTES % (AUTO) 9 % (2-9); NEUTROPHILS % (AUTO) 81 % (42-75); PLATELET COUNT 188 x10^3/uL (130-400); RED BLOOD COUNT 3.92 x10^6/uL (3.82-5.3); RED CELL DISTRIBUTION WIDTH 15.4 % (9.6-15.2)
[2020-10-28] MEDS: CARVEDILOL 12.5 MG TABLET PO SCH (05:29)
[2020-10-28 05:41] LABS: CALCIUM 9.9 mg/dL (8.5-10.1); CHLORIDE 100 mmol/L (98-107)
[2020-10-28 05:47] LABS: ALANINE AMINOTRANSFERASE 14 U/L (12-78); ALBUMIN 3.2 g/dL (3.4-5.0); ALKALINE PHOSPHATASE 64 U/L (45-117); ANION GAP 10 mmol/L (5-15); BILIRUBIN,TOTAL 0.4 mg/dL (0.2-1.0); CREATININE 5.33 mg/dL (0.55-1.02); TOTAL PROTEIN 6.8 g/dL (6.4-8.2)
[2020-10-28] MEDS ORDERED: LEVOTHYROXINE 75 MCG TABLET PO SCH (06:00)
[2020-10-28 07:28] VITALS: BP 113/72
[2020-10-28] MEDS ORDERED: ASPIRIN 81 MG TABLET EC PO SCH (09:00)
[2020-10-28] MEDS ORDERED: SERTRALINE 50MG TABLET PO SCH (09:00)
[2020-10-28] MEDS: INSULIN LISPRO 100 UNITS/ML, PEN SQ-INSULIN SCH ×2 (09:00→13:00)
[2020-10-28 12:16] VITALS: BP 101/64
[2020-10-28] MEDS: AMLODIPINE 10 MG TAB PO SCH (12:21)
[2020-10-28 12:56] VITALS: BP 101/66
[2020-10-28 13:42] VITALS: BP 114/72
[2020-10-28] MEDS: LISINOPRIL 20 MG TABLET PO SCH (13:43)
[2020-10-28 15:43] VITALS: BP 108/72
== END 2020-10-28 16:50 | disposition home or self-care (01) ==
LOC: ED 10:34 → INTOOBSV 12:01 → EDIP 12:01 → SUATTDRO 12:06 → 5SO 12:56
PROVIDERS: ADMIT Internal Medicine; ATTEND Hospitalist
DX: I16.0 Hypertensive urgency (principal); I13.0 Hypertensive heart and chronic kidney disease with heart failure and stage 1 through stage 4 chronic kidney disease, or unspecified chronic kidney disease; E11.22 Type 2 diabetes mellitus with diabetic chronic kidney disease; I50.22 Chronic systolic (congestive) heart failure; N18.6 End stage renal disease; M54.2 Cervicalgia; I25.10 Atherosclerotic heart disease of native coronary artery without angina pectoris; E78.5 Hyperlipidemia, unspecified; E11.65 Type 2 diabetes mellitus with hyperglycemia; D63.1 Anemia in chronic kidney disease; E83.52 Hypercalcemia; E87.5 Hyperkalemia; E78.00 Pure hypercholesterolemia, unspecified; E03.9 Hypothyroidism, unspecified; I25.2 Old myocardial infarction; I25.5 Ischemic cardiomyopathy; N25.0 Renal osteodystrophy; Z95.1 Presence of aortocoronary bypass graft; Z79.4 Long term (current) use of insulin; Z79.899 Other long term (current) drug therapy; Z86.73 Personal history of transient ischemic attack (TIA), and cerebral infarction without residual deficits; Z99.2 Dependence on renal dialysis; Z79.82 Long term (current) use of aspirin
CPT/HCPCS: 36415; 71045; 72125; 73200; 80048; 80053; 82040; 82306; 82310; 82330; 82728; 82962; 83540; 83550; 83735; 83970; 84100; 84484; 84550; 85025; 85045; 86705; 86706; 87340; 93005; 93990; 96374; 96375; 99285; G0378; J2270; J2405; G0257; J1815